=== PATIENT | male | born 1975 | race Caucasian/White ===

== ENCOUNTER → 2016-12-09 | Outpatient (CLI) | payer OTHER ==
[~2016-12-09] MED LIST: Albuterol 0.083% 2.5 MG/3 ML Neb Soln NEB ONE
== END ==
LOC: MW.RT 13:36
PROVIDERS: ATTEND Internal Medicine
DX: R06.09 Other forms of dyspnea (principal); J44.9 Chronic obstructive pulmonary disease, unspecified; J98.8 Other specified respiratory disorders
CPT/HCPCS: 94060; 94729

== ENCOUNTER → 2017-01-04 | Outpatient (CLI) | payer OTHER ==
--- NOTE | 2017-01-05 08:15 | PCM.PRNOTE ---
- Free Text/Narrative Note: Exercise MIBI Indication CP Sestamibi Tc99 25 MCi was given at the peak HR Patient was brought to the stress test lab in postabsorptive state verbal and paper consent was obtained from patient Vital signs at resting state blood pressure of 100/78 with a heart rate of 69 EKG shows sinus rhythm, with LVH by voltage criteria, no ST abnormalities, no ST changes no Q waves Maximal heart rate of 162 and target heart rate is 150 Patient reached the target heart rate, completed stage IV Shawn protocol Peak blood pressure is 146/80 Total exercise time of 11.33 minutes [place] V5V6, II, III, aVF, with a peak heart rate no arrhythmia METS 12.8 No symptom of chest pain or feeling dizzy Impression Normal hemodynamics, normal chronotropic, excellent exercise capacity, positive for ischemia on EKG Plan Nuclear portion pending
--- NOTE | 2017-01-05 09:34 | NM ---
EXAMINATION: Nuclear medicine myocardial perfusion study with exercise stress test. HISTORY: Heart failure. PROCEDURE: Patient exercised according to Shawn protocol for 11 minutes and 33 seconds and achieved maximal hea rt rate of 162 beats per minute. Adequate exercise. Following intravenous administration of 27.5 a mCi of technetium 99m sestamibi, stress SPECT images including gating imaging was performed. FINDINGS: Stress myocardial SPECT images demonstrates mildly decreased perfusion along the inferior wall, revi heck the source images this likely represents diaphragmatic attenuation. Review of gated images demonstrates normal wall motion, contractility and wall thickening. The left ventricular ejection fraction is 57 %. The left ventricular chamber size is normal. IMPRESSION: 1. Probable diaphragmatic attenuation along the inferior wall. If confirmation is needed correlate w ith rest imaging otherwise normal perfusion. 2. Normal ventricular chamber size and function with ejection fraction of 57 %.
== END ==
LOC: MW.NM 06:53
PROVIDERS: ATTEND Internal Medicine
DX: I50.9 Heart failure, unspecified (principal)
CPT/HCPCS: 78451; 93017; A9500

== ENCOUNTER 2018-05-03 14:14 | Emergency (ER) | payer SELFPAY ==
[2018-05-03] MEDS ORDERED: Metoprolol Succinate 50 MG Tab.ER PO ONE (14:35)
[2018-05-03] MEDS ORDERED: Bacitracin Oint 1 GM U/D Packet TOP ONE (14:36)
[2018-05-03] MEDS ORDERED: Diphtheria,Pertussis(Acell),Tetanus Vaccine 0.5 ML Syringe IM ONE (14:36)
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
[2018-05-03 15:03] VITALS: BP 183/126
== END 2018-05-03 14:59 ==
LOC: MW.ED 14:14
DX: S01.512A Laceration without foreign body of oral cavity, initial encounter (principal); S00.01XA Abrasion of scalp, initial encounter; I10 Essential (primary) hypertension; Z23 Encounter for immunization; Z79.82 Long term (current) use of aspirin; Z79.899 Other long term (current) drug therapy; V89.2XXA Person injured in unspecified motor-vehicle accident, traffic, initial encounter
CPT/HCPCS: 82962; 90471; 99283; A9270

== ENCOUNTER 2019-10-21 02:04 | Emergency (ER) | payer SELFPAY ==
[2019-10-21] MEDS ORDERED: Metoprolol Succinate 50 MG Tab.ER PO ONE (03:02)
[2019-10-21] MEDS ORDERED: Lisinopril 10 MG Tab PO ONE (03:02)
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
[2019-10-21 03:27] VITALS: BP 168/107; PULSE 110
== END 2019-10-21 03:25 | disposition home or self-care (01) ==
LOC: MW.ED 02:04
DX: F11.10 Opioid abuse, uncomplicated (principal); I10 Essential (primary) hypertension; F17.210 Nicotine dependence, cigarettes, uncomplicated; Z79.899 Other long term (current) drug therapy
CPT/HCPCS: 99285; A9270; 99283

== ENCOUNTER 2020-04-06 13:23 | Emergency (ER) | payer SELFPAY | END 2020-04-06 13:29 | disposition left against medical advice (07) | LOC: MW.ED 13:23 | DX: Z53.21 Procedure and treatment not carried out due to patient leaving prior to being seen by health care provider (principal) ==

== ENCOUNTER 2021-04-14 00:28 | Emergency (ER) | payer SELFPAY ==
--- NOTE | 2021-04-14 00:43 | EDM.PDOC ---
ED HPI GENERAL MEDICAL PROBLEM - General Chief Complaint: Skin Complaint Stated Complaint: WOUND ON RIGHT LEG Time Seen by Provider: 04/14/21 00:30 Source of Information: Reports: Patient History Limitations: Reports: No Limitations - History of Present Illness INITIAL COMMENTS - FREE TEXT/NARRATIVE: 45-year-old male past medical history of substance abuse presents for chronic wound to right lower extremity. Patient notes that he sustained a barbed wire fence injury back in December of this year. He has noted that the area has not healed properly for several months. He has been putting off seeing a physician but went on Tuesday of last week and was prescribed Keflex. He notes that his physician did not prescribe any pain medication. He states that he did have blood work done at that time, he is not certain of the results but his doctor was okay with him going home with oral antibiotics. He denies any gross changes to the area but states that it is very painful. He has follow-up with wound care tomorrow. Denies fevers, nausea, vomiting. Right Lower Leg Pain Score (Numeric/FACES): 9 - Related Data Allergies Allergy/AdvReac Type Severity Reaction Status Date / Time No Known Allergies Allergy Verified 04/14/21 00:35 Home Meds: Home Meds Metoprolol Tartrate 50 mg PO BID #60 tablet 10/21/19 [Rx] lisinopriL [Zestril] 20 mg PO DAILY #30 tablet 10/21/19 [Rx] oxyCODONE HCl/Acetaminophen [Percocet 10-325 mg Tablet] 1 each PO Q4H PRN #18 tablet 04/14/21 [Rx] Past Medical History - Past Health History Medical/Surgical History: Denies Medical/Surgical History HEENT History: Reports: None Cardiovascular History: Reports: None Respiratory History: Reports: None Gastrointestinal History: Reports: None Genitourinary History: Reports: None Musculoskeletal History: Reports: None, Amputation Neurological History: Reports: None Psychiatric History: Reports: Addiction, Anxiety Endocrine/Metabolic History: Reports: None Hematologic History: Reports: None Immunologic History: Reports: None Oncologic (Cancer) History: Reports: None Dermatologic History: Reports: Other (See Below) - Infectious Disease History Infectious Disease History: Reports: None - Past Surgical History Head Surgeries/Procedures: Reports: None GI Surgical History: Reports: Hernia, Abdominal Other Musculoskeletal Surgeries/Procedures:: right hand surgery Dermatological Surgical History: Reports: Other (See Below) Social & Family History - Family History Family Medical History: No Pertinent Family History - Caffeine Use Caffeine Use: Reports: Coffee - Recreational Drug Use Recreational Drug Type: Reports: Marijuana/Hashish ED ROS GENERAL - Review of Systems Review Of Systems: Comprehensive ROS is negative, except as noted in HPI. ED EXAM, SKIN/RASH Exam: See Below Exam Limited By: No Limitations General Appearance: Alert, WD/WN, No Apparent Distress Ears: Hearing Grossly Normal Throat/Mouth: Normal Voice, No Airway Compromise Head: Atraumatic, Normocephalic Neck: Normal Inspection Respiratory/Chest: No Respiratory Distress, No Accessory Muscle Use Cardiovascular: Normal Peripheral Pulses Extremities: Normal Inspection Neurological: Alert, Normal Cognition, Normal Gait Psychiatric: Normal Affect, Normal Mood Skin: Warm, Dry, Intact, Normal Color, Other (roughly 6x6-cm chronic ulcerated wound without surrounding erythema) Course - Vital Signs Last Recorded V/S: Last Vital Signs Temp 97.2 F 04/14/21 00:35 Pulse 78 04/14/21 00:35 Resp 17 04/14/21 00:35 BP 195/126 H 04/14/21 00:35 Pulse Ox 100 04/14/21 00:35 - Orders/Labs/Meds Orders: Active Orders 24 hr Category Date Time Status cefTRIAXone [Rocephin] 500 mg Med 04/14/21 00:58 Ordered Lidocaine 1% [Xylocaine-MPF 1%] 1 ml IM ONETIME Meds: Medications Discontinued Medications Generic Name Dose Route Start Last Admin Trade Name Freq PRN Reason Stop Dose Admin Clindamycin Phosphate 300 mg 04/14/21 00:52 Clindamycin Phosphate 900 Mg/6 Ml Sdv IM 04/14/21 00:58 ONETIME ONE Oxycodone/Acetaminophen 2 tab 04/14/21 00:51 Acetaminophen/Oxycodone 325-5 Mg Tab PO 04/14/21 00:52 ONETIME ONE - Re-Assessments/Exams Free Text/Narrative Re-Assessment/Exam: 04/14/21 00:57 Patient presents with chronic wound infection. I offered him labs and IV antibiotics but he declines. He is willing to accept an IM injection of antibiotics. He states he is basically just here for pain medication as his physician did not prescribe him any pain medication when he had his antibiotics filled on Tuesday. I do believe he is a safe discharge as he has follow-up plan carole tomorrow with wound care for long-term management of chronic wound. Departure - Departure Time of Disposition: 00:58 Disposition: Home, Self-Care 01 Condition: Good Clinical Impression: Chronic wound of extremity - Discharge Information Prescriptions: oxyCODONE HCl/Acetaminophen [Percocet 10-325 mg Tablet] 1 each PO Q4H PRN #18 tablet PRN Reason: Pain Referrals: Shawn Crespo MD [Primary Care Provider] - Forms: ED Department Discharge Additional Instructions: I have given you a short course of Percocet for your pain. Please follow-up with wound care for long-term management of your chronic wound. The following information is given to patients seen in the emergency department who are being discharged to home. This information is to outline your options for follow-up care. We provide all patients seen in our emergency department with a follow-up referral. The need for follow-up, as well as the timing and circumstances, are variable depending upon the specifics of your emergency department visit. If you don't have a primary care physician on staff, we will provide you with a referral. We always advise you to contact your personal physician following an emergency department visit to inform them of the circumstance of the visit and for follow-up with them and/or the need for any referrals to a consulting spec ialist. The emergency department will also refer you to a specialist when appropriate. This referral assures that you have the opportunity for follow-up care with a specialist. All of these measure are taken in an effort to provide you with optimal care, which includes your follow-up. Under all circumstances we always encourage you to contact your private physician who remains a resource for coordinating your care. When calling for follow-up care, please make the office aware that this follow-up is from your recent emergency room visit. If for any reason you are refused follow-up, please contact the [facility] Emergency Department at and asked to speak to the emergency department charge nurse. Please follow up with your primary care physician. If you do not have a primary care physician, see below: [facility] [place] [address] [id number] [place] [address] [facility] [address] [place] [address] Sepsis Event Note (ED) - Evaluation Sepsis Screening Result: No Definite Risk - Focused Exam Vital Signs: Vital Signs Temp Pulse Resp BP Pulse Ox 04/14/21 00:35 97.2 F 78 17 195/126 H 100 - My Orders Last 24 Hours: My Active Orders 04/14/21 00:58 cefTRIAXone [Rocephin] 500 mg Lidocaine 1% [Xylocaine-MPF 1%] 1 ml IM ONETIME - Assessment/Plan Last 24 Hours: My Active Orders 04/14/21 00:58 cefTRIAXone [Rocephin] 500 mg Lidocaine 1% [Xylocaine-MPF 1%] 1 ml IM ONETIME
[2021-04-14] MEDS ORDERED: Acetaminophen/oxyCODONE 325-5 MG Tab PO ONE (00:51)
[2021-04-14] MEDS ORDERED: Clindamycin Phosphate 900 MG/6 ML SDV IM ONE (00:52)
[2021-04-14] MEDS ORDERED: cefTRIAXone 500 MG in Lidocaine 1% 1 ML IM ONE (00:58)
[2021-04-14 01:26] VITALS: BP 170/116; PULSE 77
== END 2021-04-14 01:15 | disposition home or self-care (01) ==
LOC: MW.ED 00:28
DX: S81.801A Unspecified open wound, right lower leg, initial encounter (principal); X58.XXXA Exposure to other specified factors, initial encounter
CPT/HCPCS: 96372; 99282; A9270; J0696; 99283

== ENCOUNTER 2021-08-19 02:32 | Emergency (ER) | payer OTHER, BC ==
[2021-08-19] MEDS ORDERED: Tetracaine HCl/PF 0.5% 4 ML Bottle ONE (02:57)
[2021-08-19] MEDS ORDERED: Tetracaine HCl/PF 0.5% 4 ML Bottle EYEBOTH STA (03:00)
[2021-08-19 03:22] VITALS: PULSE 102
[2021-08-19] MEDS ORDERED: Erythromycin Base 0.5% Ophth Oint 1 GM Tube EYERT ONE (03:34)
--- NOTE | 2021-08-19 03:47 | EDM.PDOC ---
ED HPI GENERAL MEDICAL PROBLEM - General Chief Complaint: Eye Problems Stated Complaint: CHEMICAL IN RIGHT EYE Time Seen by Provider: 08/19/21 03:02 - History of Present Illness INITIAL COMMENTS - FREE TEXT/NARRATIVE: CHIEF COMPLAINT(S): Right eye pain HISTORY OF PRESENT ILLNESS: This is a 46-year-old man with a past medical history of hypertension who comes to the emergency department with a chief complaint of right eye pain. The patient states that approximately 10 to 12 hours prior to arrival he was working on the oil [place] when a chemical/surfactant splashed and got a small amount into his right eye. He states that there was initially no pain however over the last few hours he has been experiencing right eye pain and intermittent blurry vision. He denies any loss of vision, double vision. He states that there is no pain with extraocular movements. He states that there is clear drainage. He denies any other injury to the eye. He states that he washed his eye out with 3 cups of water. He has not tried any other medications. He currently rates his pain as 4-5 out of 10 and describes it as burning. REVIEW OF SYSTEMS: Constitutional: Denies fever, chills. Eyes: Denies eye pain Ears, Nose, Mouth, & Throat: Positive for right eye pain denies earache Cardiovascular: Denies chest pain Respiratory: Denies shortness of breath Gastrointestinal: Denies Nausea, vomiting, diarrhea, hematochezia. Genitourinary: Denies hematuria Skin:Denies a rash MSK: Denies joint pain Neurological: Positive for right eye blurry vision. Denies numbness, tingling, weakness, diplopia, loss of vision Psychiatric: Denies depression PAST MEDICAL HISTORY: As per history of present illness and as reviewed below otherwise noncontributory. SURGICAL HISTORY: As per history of present illness and as reviewed below [facility] noncontributory. SOCIAL HISTORY: As per history of present illness and as reviewed below otherwise noncontributory. FAMILY HISTORY: As per history of present illness and as reviewed below [facility] noncontributory. EXAMINATION OF ORGAN SYSTEMS/BODY AREAS: Constitutional: Blood pressure was 173/112, heart rate 102, respiratory rate 18 with an oxygen saturation 96% on room air. Temperature 36.5 General: Well-appearing man who is in no acute distress Psychiatric: Appropriate mood and affect. Eyes: There is no scleral icterus. The right eye has conjunctival injection. There is no limbic ischemia. No hyphema or hypopyon. Visual acuity is 2025 in left eye. Right visual acuity unable to assess secondary to patient stating his eye is blurry. Extraocular movements were intact. No signs of entrapment. No evidence of foreign body. On fluorescein examination there does not appear to be any corneal abrasion or Clarisse sign. ENMT: Moist mucous membranes. No pharyngeal erythema Cardiovascular: Regular, rate, and rhythm. No gallops, murmurs, or rubs. Respiratory: Lungs clear to auscultation bilaterally. No wheezes, rales, or rhonchi. Skin: No lesions or abrasions. Neurological: Alert, GCS 15 MEDICAL DECISION MAKING AND COURSE IN THE ED WITH INTERPRETATION/REVIEW OF DIAGNOSTIC STUDIES: This is a 46-year-old man without any significant past medical history who comes to the emergency department with chemical conjunctivitis without any obvious corneal abrasion. I did encourage the patient to rinse out the patient's eye however he refused stating that he does not like things in his eye. 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 On my limited examination there is no obvious emergent condition including a fixed dilated pupil concerning for glaucoma or globe rupture, signs of entrapment or significant corneal abrasion. The patient was unable to provide us with the actual chemical that was splashed into his eye. Given this we will provide the patient with the erythromycin cream and artificial tears. I did discuss with patient that we would contact in the morning the fitting room operator that he can have an appointment tomorrow for further evaluation. He was amenable to this plan. He was given strict return precautions. Patient was amenable discharge and had no further questions DISPOSITION: The patient was discharged home in stable condition. The patient will follow up with ophthalmology tomorrow CONDITION: Fair PROCEDURES: None FINAL IMPRESSION(S)/DIAGNOSES: 1. Acute right eye chemical conjunctivitis Rajesh Renee M.D. right eye Pain Score (Numeric/FACES): 8 - Related Data Allergies Allergy/AdvReac Type Severity Reaction Status Date / Time No Known Allergies Allergy Verified 08/19/21 03:00 Home Meds: Home Meds Metoprolol Tartrate 50 mg PO BID #60 tablet 10/21/19 [Rx] lisinopriL [Zestril] 20 mg PO DAILY #30 tablet 10/21/19 [Rx] oxyCODONE HCl/Acetaminophen [Percocet 10-325 mg Tablet] 1 each PO Q4H PRN #18 tablet 04/14/21 [Rx] Past Medical History - Past Health History Medical/Surgical History: Denies Medical/Surgical History HEENT History: Reports: None Cardiovascular History: Reports: None Respiratory History: Reports: None Gastrointestinal History: Reports: None Genitourinary History: Reports: None Musculoskeletal History: Reports: Amputation Neurological History: Reports: None Psychiatric History: Reports: Addiction, Anxiety Endocrine/Metabolic History: Reports: None Insulin Pump Model and Can Capper: None Hematologic History: Reports: None Immunologic History: Reports: None Oncologic (Cancer) History: Reports: None Dermatologic History: Reports: Other (See Below) Other Dermatologic History: leg ulcer - Infectious Disease History Infectious Disease History: Reports: None - Past Surgical History Head Surgeries/Procedures: Reports: None GI Surgical History: Reports: Hernia, Abdominal Other Musculoskeletal Surgeries/Procedures:: right hand surgery Social & Family History - Family History Family Medical History: No Pertinent Family History - Caffeine Use Caffeine Use: Reports: Coffee - Recreational Drug Use Recreational Drug Use: No ED ROS GENERAL - Review of Systems Review Of Systems: See Below ED EXAM GENERAL W FULL EYE - Physical Exam Exam: See Below Course - Vital Signs Last Recorded V/S: Last Vital Signs Temp 36.5 C 08/19/21 03:01 Pulse 102 H 08/19/21 04:14 Resp 18 08/19/21 04:14 BP 153/114 H 08/19/21 04:14 Pulse Ox 97 08/19/21 04:14 - Orders/Labs/Meds Meds: Medications Discontinued Medications Generic Name Dose Route Start Last Admin Trade Name Freq PRN Reason Stop Dose Admin Artificial Tears 1 each 08/19/21 03:43 08/19/21 04:00 Carboxymethylcellulose Sodium 0.5% Ophth Soln 0.4 Ml Ud Box Of 30 EYERT 08/19/21 03:44 1 drop ONETIME STA Administration Erythromycin 1 gm 08/19/21 03:34 08/19/21 03:38 Erythromycin Base 0.5% Ophth Oint 1 Gm Tube EYERT 08/19/21 03:35 1 gm ONETIME ONE Administration Tetracaine HCl 1 ml 08/19/21 03:00 08/19/21 03:13 Tetracaine Hcl/Pf 0.5% 4 Ml Bottle EYEBOTH 08/19/21 03:01 1 ml NOW STA Administration Tetracaine HCl Confirm 08/19/21 02:57 08/19/21 03:10 Tetracaine Hcl/Pf 0.5% 4 Ml Bottle Administered 08/19/21 02:58 Not Given Dose 4 ml .ROUTE .STK-MED ONE Departure - Departure Time of Disposition: 03:44 Disposition: Home, Self-Care 01 Condition: Fair Clinical Impression: Chemical conjunctivitis of right eye - Discharge Information *PRESCRIPTION DRUG MONITORING PROGRAM REVIEWED*: No *COPY OF PRESCRIPTION DRUG MONITORING REPORT IN PATIENT BERTA: No Instructions: Chemical Conjunctivitis, Adult, [id number] Referrals: Shawn Crespo MD [Primary Care Provider] - Forms: ED Department Discharge Additional Instructions: You were evaluated today on an emergent basis. At this time your exam was limited however I do recommend that you use the erythromycin ointment and artificial tears 4-6 times daily. I recommend you contact ophthalmology this morning and set up an appointment today so that they can evaluate you in their clinic. Typically they are available to see you in clinic. We will attempt to call and make an a clinic appointment for you today. If you have any worsening symptoms please return to the emergency department. Opthalmology Dr. Wheatley/Alcon [phone] The patient is informed of any results of their evaluation and diagnostic workup and all questions are answered. They are given discharge instructions and return precautions. The patient is stable for discharge. The patient states they understand and agree with the plan and that they will return if their symptoms get worse or if they have any new concerns. The following information is given to patients seen in the emergency department who are being discharged to home. This information is to outline your options for follow-up care. We provide all patients seen in our emergency department with a follow-up referral. The need for follow-up, as well as the timing and circumstances, are variable depending upon the specifics of your emergency department visit. If you don't have a primary care physician on staff, we will provide you with a referral. We always advise you to contact your personal physician following an emergency department visit to inform them of the circumstance of the visit and for follow-up with them and/or the need for any referrals to a consulting specialist. The emergency department will also refer you to a specialist when appropriate. This referral assures that you have the opportunity for follow-up care with a specialist. All of these measure are taken in an effort to provide you with optimal care, which includes your follow-up. Under all circumstances we always encourage you to contact your private physi abelardo who remains a resource for coordinating your care. When calling for follow- up care, please make the office aware that this follow-up is from your recent emergency room visit. If for any reason you are refused follow-up, please contact the [facility] Emergency Department at and asked to speak to the emergency department charge nurse. Sepsis Event Note (ED) - Evaluation Sepsis Screening Result: No Definite Risk - Focused Exam Vital Signs: Vital Signs Temp Pulse Resp BP Pulse Ox 08/19/21 04:14 102 H 18 153/114 H 97 08/19/21 03:01 36.5 C 102 H 18 173/112 H 96
[2021-08-19] MEDS: Carboxymethylcellulose Sodium 0.5% Ophth Soln 0.4 ML UD Box of 30 EYERT STA ×2 (04:00→04:09)
[2021-08-19 04:15] VITALS: BP 153/114
== END 2021-08-19 04:15 | disposition home or self-care (01) ==
LOC: MW.ED 02:32
DX: H10.211 Acute toxic conjunctivitis, right eye (principal); T50.995A Adverse effect of other drugs, medicaments and biological substances, initial encounter
CPT/HCPCS: 99283; A9270

== ENCOUNTER 2021-09-12 12:02 | Emergency (ER) | payer BC ==
--- NOTE | 2021-09-12 12:31 | EDM.PDOC ---
ED HPI GENERAL MEDICAL PROBLEM - General Chief Complaint: Lower Extremity Injury/Pain Stated Complaint: MEDICAL CLEARANCE Time Seen by Provider: 09/12/21 12:12 - History of Present Illness INITIAL COMMENTS - FREE TEXT/NARRATIVE: CHIEF COMPLAINT(S): Medical Clearance HISTORY OF PRESENT ILLNESS: This is a 46-year-old man with a past medical history of hypertension and chronic right lower extremity wound who comes to the emergency department with a chief complaint of Medical Clearance. The patient states that they have no symptoms and are here for medical clearance. The patient states that they are feeling well and they deny chest pain, shortness of breath, abdominal pain, nausea or vomiting. He denies any fevers or chills. He denies any drainage from his chronic wound. He denies any pain in the area. He states that he was not on his way to the emergency department until he was arrested. He denies any other symptoms REVIEW OF SYSTEMS: Constitutional: Denies fever, chills. Eyes: Denies eye pain Ears, Nose, Mouth, & Throat: Denies earache Cardiovascular: Denies chest pain Respiratory: Denies shortness of breath Gastrointestinal: Denies Nausea, vomiting, diarrhea, hematochezia. Genitourinary: Denies hematuria Skin: Positive for chronic right lower extremity wound MSK: Denies joint pain Neurological: Denies blurred vision Psychiatric: Denies depression PAST MEDICAL HISTORY: As per history of present illness and as reviewed below otherwise noncontributory. SURGICAL HISTORY: As per history of present illness and as reviewed below otherwise noncontributory. SOCIAL HISTORY: As per history of present illness and as reviewed below otherwise noncontributory. FAMILY HISTORY: As per history of present illness and as reviewed below otherwise noncontributory. EXAMINATION OF ORGAN SYSTEMS/BODY AREAS: Constitutional: Blood pressure is 183/117, heart rate 100, respiratory rate 18 with an oxygen saturation of 98% on room air. Temperature 36.7 General: Young man who does not appear to be in acute distress Psychiatric: Appropriate mood and affect. Eyes: No scleral icterus or conjunctival erythema ENMT: Moist mucous membranes. No pharyngeal erythema Cardiovascular: Regular, rate, and rhythm. No gallops, murmurs, or rubs. Bilateral upper extremity pulses symmetric and intact. No peripheral edema. No JVD. Respiratory: Lungs clear to auscultation bilaterally. No wheezes, rales, or rhonchi. Gastrointestinal: Soft, non-tender, non-distended. Normoactive bowel sounds Genitourinary: No suprapubic tenderness Musculoskeletal: Normal range of motion. Skin: 6 x 6 cm wound to the patient's right calf area without any surrounding erythema or purulent drainage. There appears to be some healing surrounding this wound however it is slightly foul-smelling. No crepitus. Neurological: Alert, GCS 15 distal sensation is intact MEDICAL DECISION MAKING AND COURSE IN THE ED WITH INTERPRETATION/REVIEW OF DIAGNOSTIC STUDIES: This is a 46-year-old man with a past medical history of chronic right lower extremity wound and hypertension who comes to the emergency department for a medical clearance. The patient is currently asymptomatic but does have some hypertension which is uncontrolled. The patient states that he has not taken his blood pressure medications in time. He does not remember his medications. Therefore we will confirm his medications and provide him with his home medications. He denies any other symptoms. Given the right lower extremity wound I did contact Dr. Ribera to come and evaluated and provide recommendations given the patient will be in fdc. She stated that she would come down and evaluate the patient. Dr. Ribera did come and evaluate the patient provide recommendations. At this time she stated that the wound has significantly proved and provided recommendations which provided the patient discharge paperwork. Given strict return precautions to the patient. The patient was amenable to discharge and had no further questions. DISPOSITION: The patient was discharged in police custody in stable condition. CONDITION: Good PROCEDURES: None FINAL IMPRESSION(S)/DIAGNOSES: 1. Acute encounter for medical screening examination 2. Chronic wound 3. Hypertension Rajesh Renee M.D. right leg Pain Score (Numeric/FACES): 8 - Related Data Allergies Allergy/AdvReac Type Severity Reaction Status Date / Time No Known Allergies Allergy Verified 09/12/21 12:13 Home Meds: Home Meds Lisinopril/Hydrochlorothiazide [Lisinopril-Hctz 20-25 mg Tab] 1 each PO DAILY #30 tablet 09/12/21 [Rx] Sodium Hypochlorite [Dakin's] 473 ml MC DAILY #1 solution 09/12/21 [Rx] predniSONE 10 mg PO .TAPER #70 tab 09/12/21 [Rx] Past Medical History - Past Health History Medical/Surgical History: Denies Medical/Surgical History HEENT History: Reports: None Cardiovascular History: Reports: None Respiratory History: Reports: None Gastrointestinal History: Reports: None Genitourinary History: Reports: None Musculoskeletal History: Reports: Amputation Neurological History: Reports: None Psychiatric History: Reports: Addiction, Anxiety Endocrine/Metabolic History: Reports: None Insulin Pump Model and Inclusion Special Education Teacher: None Hematologic History: Reports: None Immunologic History: Reports: None Oncologic (Cancer) History: Reports: None Dermatologic History: Reports: Other (See Below) Other Dermatologic History: leg ulcer - Infectious Disease History Infectious Disease History: Reports: None - Past Surgical History Head Surgeries/Procedures: Reports: None GI Surgical History: Reports: Hernia, Abdominal Other Musculoskeletal Surgeries/Procedures:: right hand surgery Dermatological Surgical History: Reports: Other (See Below) Social & Family History - Family History Family Medical History: No Pertinent Family History - Caffeine Use Caffeine Use: Reports: Coffee Review of Systems - Review of Systems Review Of Systems: See Below ED EXAM, GENERAL - Physical Exam Exam: See Below Course - Vital Signs Last Recorded V/S: Last Vital Signs Temp 36.7 C 09/12/21 12:14 Pulse 93 09/12/21 13:46 Resp 16 09/12/21 13:46 BP 188/125 H 09/12/21 13:46 Pulse Ox 98 09/12/21 13:46 - Orders/Labs/Meds Meds: Medications Discontinued Medications Generic Name Dose Route Start Last Admin Trade Name Troyq PRN Reason Stop Dose Admin Lisinopril/HCTZ 2 tab 09/12/21 12:33 09/12/21 12:57 Lisinopril/Hydrochlorothiazide 10-12.5 Mg Tab PO 09/12/21 12:34 2 tab ONETIME ONE Administration Departure - Departure Time of Disposition: 13:04 Disposition: Home, Self-Care 01 Condition: Good Clinical Impression: Hypertension, Chronic wound of extremity - Discharge Information Prescriptions: Sodium Hypochlorite [Dakin's] 473 ml MC DAILY #1 solution Lisinopril/Hydrochlorothiazide [Lisinopril-Hctz 20-25 mg Tab] 1 each PO DAILY #30 tablet predniSONE 10 mg PO .TAPER #70 tab Instructions: Hypertension, Adult Referrals: PCP,None [Primary Care Provider] - Forms: ED Department Discharge Additional Instructions: Your evaluated today on an emergent basis. At this time we did have the surgeon come down and evaluate your wound. It does appear to be healing well. Your blood pressure was elevated here today and we did provide you with your home dose of medication. I recommend you take your home dose of medication as prescribed. Please follow the following recommendations Take prednisone daily Week 1 (starting today): 40mg/day Week 2: 30mg/day Week 3: 20mg/day Week 4: 10mg/day Week 5 stop In addition I would like you to use Dakin's solution and soaked a 4 x 4 gauze. We will bring that gauze out and apply to the wound. Cover that with a dry 4 x 4 gauze and secured the pad in place with an Meek bandage. This needs to be done daily. Meek bandage can be picked up at pharmacy as your prescriptions were sent to [facility] Follow-up with general surgery as needed. [facility] - General Surgery [address], [address] [place] [address] The patient is informed of any results of their evaluation and diagnostic workup and all questions are answered. They are given discharge instructions and return precautions. The patient is stable for discharge. The patient states they understand and agree with the plan and that they will return if their symptoms get worse or if they have any new concerns. The following information is given to patients seen in the emergency department who are being discharged to home. This information is to outline your options for follow-up care. We provide all patients seen in our emergency department with a follow-up referral. The need for follow-up, as well as the timing and circumstances, are variable depending upon the specifics of your emergency department visit. If you don't have a primary care physician on staff, we will provide you with a referral. We always advise you to contact your personal physician following an emergency department visit to inform them of the circumstance of the visit and for follow-up with them and/or the need for any referrals to a consulting specialist. The emergency department will also refer you to a specialist when appropriate. This referral assures that you have the opportunity for follow-up care with a specialist. All of these measure are taken in an effort to provide you with optimal care, which includes your follow-up. Under all circumstances we always encourage you to contact your private physician who remains a resource for coordinating your care. When calling for follow-up care, please make the office aware that this follow-up is from your recent emergency room visit. If for any reason you are refused follow-up, please contact the [facility] Emergency Department at and asked to speak to the emergency department charge nurse. Sepsis Event Note (ED) - Evaluation Sepsis Screening Result: No Definite Risk
[2021-09-12] MEDS ORDERED: Lisinopril/Hydrochlorothiazide 10-12.5 MG Tab PO ONE (12:33)
[2021-09-12 13:46] VITALS: BP 188/125; PULSE 93
== END 2021-09-12 13:47 | disposition home or self-care (01) ==
LOC: MW.ED 12:02
DX: S81.801A Unspecified open wound, right lower leg, initial encounter (principal); I10 Essential (primary) hypertension; X58.XXXA Exposure to other specified factors, initial encounter
CPT/HCPCS: 99283; A9270

== ENCOUNTER 2022-01-29 05:50 | Emergency (ER) | payer OTHER ==
[2022-01-29] MEDS ORDERED: Octyl 2-Cyanoacrylate 1 APPLIC TUBE TOP STA (06:14)
[2022-01-29 06:51] VITALS: BP 163/107; PULSE 74
== END 2022-01-29 06:45 | disposition home or self-care (01) ==
LOC: MW.ED 05:50
DX: S61.210A Laceration without foreign body of right index finger without damage to nail, initial encounter (principal); W26.8XXA Contact with other sharp object(s), not elsewhere classified, initial encounter
CPT/HCPCS: 12001; 73120; 99282; A9270; 99283

== ENCOUNTER 2022-02-14 11:57 | Emergency (ER) | payer BC, OTHER ==
[2022-02-14 12:22] VITALS: BP 179/119; PULSE 92
[2022-02-14] MEDS ORDERED: Orphenadrine 60 MG/2 ML Inj IM ONE (12:54)
[2022-02-14] MEDS ORDERED: Ketorolac 30 MG/ML SDV IM ONE (12:54)
[2022-02-14] MEDS ORDERED: Lidocaine 5% 700 MG Patch TRDERM ONE (12:54)
[2022-02-14] MEDS ORDERED: traMADol 50 MG Tab PO ONE (12:55)
== END 2022-02-14 14:56 | disposition home or self-care (01) ==
LOC: MW.ED 11:57
DX: M54.50 Low back pain, unspecified (principal); I10 Essential (primary) hypertension; F41.9 Anxiety disorder, unspecified; Z79.899 Other long term (current) drug therapy
CPT/HCPCS: 72131; 96372; 99283; A9270; J1885; J2360

== ENCOUNTER 2022-02-21 09:13 | Emergency (ER) | payer BC, OTHER ==
[2022-02-21 09:42] VITALS: BP 176/106; PULSE 119
[2022-02-21] MEDS ORDERED: Ketorolac 30 MG/ML SDV IM ONE (09:46)
[2022-02-21] MEDS ORDERED: Orphenadrine 60 MG/2 ML Inj IM ONE (09:46)
== END 2022-02-21 10:05 | disposition home or self-care (01) ==
LOC: MW.ED 09:13
DX: G89.29 Other chronic pain (principal); M54.50 Low back pain, unspecified; I10 Essential (primary) hypertension; Z72.0 Tobacco use
CPT/HCPCS: 96372; 99283; J1885; J2360

== ENCOUNTER 2022-03-26 15:49 | Emergency (ER) | payer BC ==
[2022-03-26] MEDS ORDERED: HYDROmorphone 2 MG/ML Syringe IVPUSH STA (16:42)
[2022-03-26] MEDS ORDERED: Ondansetron 4 MG/2 ML SDV IVPUSH STA (16:42)
[2022-03-26] MEDS ORDERED: Sodium Chloride 0.9% 1,000 ML IV SCH (16:45)
[2022-03-26] MEDS ORDERED: cefTRIAXone 2 GM in Sodium Chloride 0.9% 100 ML IV STA (17:12)
[2022-03-26] MEDS ORDERED: VANCOmycin 1.5 GM/300 ML 1.5 GM in Premix Bag 1 BAG IV ONE (17:30)
[2022-03-26 19:15] LABS: BLOOD UREA NITROGEN,BUN 12 mg/dL (7.0-18.0); CARBON DIOXIDE,CO2 25.5 mmol/L (21.0-32.0); CHLORIDE,CL 103 mmol/L (98-107); GLUCOSE RANDOM 92 mg/dL (74-106); POTASSIUM,K 4.4 mmol/L (3.5-5.1); SODIUM,NA 138 mmol/L (136-148)
[2022-03-26 19:20] LABS: ESTIMATED GFR > 60.0 ml/min
[2022-03-26] MEDS ORDERED: cefTRIAXone 2 GM/50 ML BAG ONE (19:44)
[2022-03-26] MEDS ORDERED: cefTRIAXone 2 GM in Premix Bag 1 BAG IV STA (19:53)
[2022-03-26 21:06] VITALS: BP 153/96; PULSE 89
== END 2022-03-26 20:30 ==
LOC: MW.ED 15:49
DX: M46.49 Discitis, unspecified, multiple sites in spine (principal); M86.9 Osteomyelitis, unspecified; F11.20 Opioid dependence, uncomplicated; I10 Essential (primary) hypertension; Z79.899 Other long term (current) drug therapy; Z20.822 Contact with and (suspected) exposure to COVID-19
CPT/HCPCS: 36415; 80053; 83605; 85025; 85652; 87040; 87077; 87186; 87635; 96365; 96366; 96367; 96375; 99284; J0696; J1170; J2405; J3370; J7030; 99285; U0002

== ENCOUNTER 2022-06-28 08:24 | Inpatient (IN) | payer BC ==
[2022-06-28] MEDS ORDERED: Sodium Chloride 0.9% 10 ML Syringe FLUSH PRN (09:50)
[2022-06-28] MEDS ORDERED: Sodium Chloride 0.9% 2.5 ML Syringe FLUSH PRN (09:50)
[2022-06-28] MEDS ORDERED: Sodium Chloride 0.9% 1,000 ML IV ONE ×2 (09:50→10:26)
[2022-06-28 10:22] LABS: CARBON DIOXIDE,CO2 24.2 mmol/L (21.0-32.0); POTASSIUM,K 4.7 mmol/L (3.5-5.1)
[2022-06-28] MEDS ORDERED: Lactated Ringers 1,000 ML IV ONE (10:42)
[2022-06-28] MEDS ORDERED: Hydrocortisone Sodium Succinate 100 MG/2 ML SDV IVPUSH ONE (12:25)
[2022-06-28 12:52] LABS: CARBON DIOXIDE,CO2 25.1 mmol/L (21.0-32.0); POTASSIUM,K 4.6 mmol/L (3.5-5.1)
[2022-06-28] MEDS ORDERED: Lidocaine 2% 11 ML Jelly Filled Syringe MUCMEM STA (16:10)
[2022-06-28 17:38] VITALS: PULSE 88
[2022-06-28] MEDS ORDERED: Lactated Ringers 500 ML IV SCH (18:30)
[2022-06-28] MEDS ORDERED: Lactated Ringers 500 ML IV ONE (18:45)
[2022-06-28] MEDS ORDERED: methylPREDNISolone Sodium Succinate 40 MG/1 ML SDV IVPUSH SCH (18:45)
[2022-06-28] MEDS ORDERED: Norepinephrine 4 MG in Dextrose 5% in Water 246 ML IV SCH ×4 (19:00→20:00)
[2022-06-28] MEDS: Lactated Ringers 1,000 ML IV SCH ×2 (19:08→22:18)
[2022-06-28] MEDS: Heparin Sodium 5,000 Units/ML Vial SUBCUT SCH (19:46)
[2022-06-28] MEDS: Hydrocortisone Sodium Succinate 100 MG/2 ML SDV IVPUSH SCH (19:46)
[2022-06-29 00:30] LABS: CARBON DIOXIDE,CO2 27.8 mmol/L (21.0-32.0)
[2022-06-29] MEDS: Hydrocortisone Sodium Succinate 100 MG/2 ML SDV IVPUSH SCH ×3 (01:17→14:18)
[2022-06-29] MEDS ORDERED: DAPTOmycin 500 MG Vial IV STA (02:15)
[2022-06-29] MEDS ORDERED: DAPTOMYCIN IVPUSH ONE ×2 (02:30→02:45)
[2022-06-29] MEDS ORDERED: SODIUM CHLORIDE 0.9% IVPUSH ONE ×2 (02:30→02:45)
[2022-06-29] MEDS: Heparin Sodium 5,000 Units/ML Vial SUBCUT SCH ×2 (03:52→12:04)
[2022-06-29] MEDS: Lactated Ringers 1,000 ML IV SCH (05:48)
[2022-06-29 06:28] LABS: CARBON DIOXIDE,CO2 28.5 mmol/L (21.0-32.0); POTASSIUM,K 3.9 mmol/L (3.5-5.1)
[2022-06-29] MEDS ORDERED: Sodium Hypochlorite 0.25% Soln 473 ML TOP SCH (09:30)
[2022-06-29] MEDS ORDERED: cefTAZidime Pentahydrate 2 GM in Dextrose 5% in Water 100 ML IV SCH ×2 (10:00)
[2022-06-29 14:33] VITALS: BP 115/67
[2022-06-30] MEDS ORDERED: VANCOmycin 1.5 GM/300 ML 300 ML IV SCH (04:00)
== END 2022-06-29 02:30 | DRG 424 ==
LOC: MW.ED 08:24 → MW.ICU 16:56
PROVIDERS: ADMIT Student in an Organized Health Care Education/Training Program; ATTEND Student in an Organized Health Care Education/Training Program
PROC: 05HM33Z Insertion of Infusion Device into Right Internal Jugular Vein, Percutaneous Approach (ICD-10-PCS; principal; 2022-06-28)
DX: E27.2 Addisonian crisis (principal); N17.9 Acute kidney failure, unspecified; I95.9 Hypotension, unspecified; E27.40 Unspecified adrenocortical insufficiency; F41.9 Anxiety disorder, unspecified; I11.0 Hypertensive heart disease with heart failure; Z66 Do not resuscitate; Z20.822 Contact with and (suspected) exposure to COVID-19; I50.9 Heart failure, unspecified; E86.0 Dehydration; L97.909 Non-pressure chronic ulcer of unspecified part of unspecified lower leg with unspecified severity; T38.0X5A Adverse effect of glucocorticoids and synthetic analogues, initial encounter; Z79.899 Other long term (current) drug therapy; Z51.5 Encounter for palliative care
CPT/HCPCS: 36415; 71045; 71045-26; 80048; 80053; 81001; 82550; 82947; 83605; 83735; 83935; 84300; 84443; 84484; 85025; 87040; 87077; 87154; 87186; 93005; 96361; 96374; 99285-25; A9270-GY; J0713; J0878; J1644; J1720; J3490; J7030; J7060; J7120; U0002

== ENCOUNTER 2022-10-15 14:35 | Emergency (ER) | payer BC ==
[2022-10-15 15:21] VITALS: BP 185/109; PULSE 105
[2022-10-15] MEDS ORDERED: Diphtheria,Pertussis(Acell),Tetanus Vaccine 0.5 ML Syringe IM ONE (16:06)
[2022-10-15] MEDS ORDERED: Acetaminophen/HYDROcodone 325-5 MG Tab PO ONE (19:05)
== END 2022-10-15 21:30 ==
LOC: MW.ED 14:35
DX: T33.522A Superficial frostbite of left hand, initial encounter (principal); T33.521A Superficial frostbite of right hand, initial encounter; I11.0 Hypertensive heart disease with heart failure; I50.9 Heart failure, unspecified; F17.210 Nicotine dependence, cigarettes, uncomplicated; Z79.899 Other long term (current) drug therapy; X31.XXXA Exposure to excessive natural cold, initial encounter
CPT/HCPCS: 99283; A9270

== ENCOUNTER 2023-01-14 16:37 | Emergency (ER) | payer SELFPAY ==
[2023-01-14] MEDS ORDERED: Sodium Chloride 0.9% 10 ML Syringe FLUSH PRN (17:32)
[2023-01-14] MEDS ORDERED: Sodium Chloride 0.9% 2.5 ML Syringe FLUSH PRN (17:32)
[2023-01-14 18:43] LABS: CARBON DIOXIDE,CO2 27.8 mmol/L (21.0-32.0); POTASSIUM,K 3.9 mmol/L (3.5-5.1)
[2023-01-14] MEDS ORDERED: Iopamidol 755 MG/ML 500 ML Multipack Bottle IVPUSH ONE (19:15)
[2023-01-14] MEDS ORDERED: Ibuprofen 800 MG Tab PO STA (19:23)
[2023-01-14] MEDS ORDERED: Ibuprofen 800 MG Tab ONE (19:24)
[2023-01-14 20:42] VITALS: BP 138/83; PULSE 76
== END 2023-01-14 21:15 | disposition left against medical advice (07) ==
LOC: MW.ED 16:37
DX: M54.41 Lumbago with sciatica, right side (principal); F15.10 Other stimulant abuse, uncomplicated; F11.10 Opioid abuse, uncomplicated; L97.219 Non-pressure chronic ulcer of right calf with unspecified severity; I11.0 Hypertensive heart disease with heart failure; I50.9 Heart failure, unspecified; Z72.0 Tobacco use; Z79.899 Other long term (current) drug therapy
CPT/HCPCS: 36415; 72132; 73590; 80053; 80305; 81001; 83605; 85025; 85652; 86140; 87040; 87086; 99284; A9270; Q9967

== ENCOUNTER 2023-02-12 21:10 | Emergency (ER) | payer BC ==
[2023-02-12] MEDS ORDERED: Sodium Chloride 0.9% 1,000 ML IV ONE (22:28)
[2023-02-12] MEDS ORDERED: HYDROmorphone 1 MG/ML Syringe IVPUSH ONE (22:28)
[2023-02-12] MEDS ORDERED: Ondansetron 4 MG/2 ML SDV IVPUSH ONE (22:40)
[2023-02-13] MEDS ORDERED: HYDROmorphone 2 MG/ML Syringe IVPUSH ONE (01:37)
[2023-02-13 02:00] LABS: CORONAVIRUS COVID-19 NAA NEGATIVE (NEGATIVE); INFLUENZA A NAA NEGATIVE (NEGATIVE); INFLUENZA B NAA NEGATIVE (NEGATIVE)
[2023-02-13 02:07] LABS: CARBON DIOXIDE,CO2 23.6 mmol/L (21.0-32.0); POTASSIUM,K 4.2 mmol/L (3.5-5.1)
[2023-02-13] MEDS ORDERED: Cefepime 2 GM in Sodium Chloride 0.9% 50 ML IV ONE (03:06)
[2023-02-13] MEDS ORDERED: HYDROmorphone 1 MG/ML Syringe IVPUSH ONE ×2 (08:37→08:39)
[2023-02-13 08:50] VITALS: BP 159/100; PULSE 107
== END 2023-02-13 09:24 ==
LOC: MW.ED 21:10
DX: M86.9 Osteomyelitis, unspecified (principal); I11.0 Hypertensive heart disease with heart failure; I50.9 Heart failure, unspecified; Z20.822 Contact with and (suspected) exposure to COVID-19
CPT/HCPCS: 0240U; 36415; 73590; 80053; 80305; 83605; 85025; 86850; 86900; 86901; 87040; 96365; 96367; 96375; 96376; 99284; J0692; J1170; J2405; J3360; J3370; J3490; J7030; J7050; 99285

== ENCOUNTER 2023-07-29 10:45 | Inpatient (IN) | payer BC ==
[2023-07-29] MEDS ORDERED: Sodium Chloride 0.9% 10 ML Syringe FLUSH PRN (10:52)
[2023-07-29] MEDS ORDERED: Sodium Chloride 0.9% 2.5 ML Syringe FLUSH PRN (10:52)
[2023-07-29] MEDS ORDERED: Sodium Chloride 0.9% 1,000 ML IV ONE (11:44)
[2023-07-29 12:35] LABS: A/G RATIO 0.5 (0.9-1.6); ALANINE AMINOTRANSFERASE,ALT 57 IU/L (14-63); ALBUMIN 2.8 g/dL (3.4-5.0); ALKALINE PHOSPHATASE 132 U/L (46-116); ASPARTATE AMNIOTRANSFERASE,AST 61 IU/L (15-37); BASOPHILS ABSOLUTE AUTO 0.04 K/uL (0.00-0.20); BASOPHILS PERCENT AUTO 0.5 % (0.0-1.0); BILIRUBIN TOTAL 0.3 mg/dL (0.2-1.0); BLOOD UREA NITROGEN,BUN 15 mg/dL (7.0-18.0); CALCIUM 8.7 mg/dL (8.5-10.1); CARBON DIOXIDE,CO2 26.6 mmol/L (21.0-32.0); CHLORIDE,CL 99 mmol/L (98-107); CREATININE 0.9 mg/dL (0.8-1.3); EOSINOPHILS PERCENT AUTO 2.7 % (0.0-6.0); GLUCOSE RANDOM 103 mg/dL (74-106); HEMATOCRIT 32.6 % (42.0-52.0); LYMPHOCYTES ABSOLUTE AUTO 1.75 K/uL (1.00-4.80); LYMPHOCYTES PERCENT AUTO 23.4 % (24.0-44.0); MEAN CORPUSCULAR HGB CONC 33.7 g/dL (32.0-36.0); MEAN PLATELET VOLUME 9.7 fL (9.4-12.4); MONOCYTES ABSOLUTE AUTO 0.66 K/uL (0.00-0.80); MONOCYTES PERCENT AUTO 8.8 % (0.0-8.0); NEUTROPHILS ABSOLUTE AUTO 4.8 K/uL (1.8-7.7); NEUTROPHILS PERCENT AUTO 64.5 % (41.0-71.0); PLATELET COUNT,PLT 252 K/uL (150-400); RED BLOOD CELL COUNT 3.79 M/uL (4.52-5.90); SODIUM,NA 132 mmol/L (136-148); WHITE BLOOD CELL COUNT,WBC 7.49 K/uL (3.9-11.3)
[2023-07-29 12:36] LABS: ESTIMATED GFR 104 mL/min (>60)
[2023-07-29] MEDS ORDERED: Gadobenate Dimeglumine 529 MG/ML 20 ML SDV IVPUSH STA (13:23)
[2023-07-29] MEDS ORDERED: VANCOmycin 1.5 GM/300 ML 1.5 GM in Premix Bag 1 BAG IV ONE ×2 (13:45→15:15)
[2023-07-29] MEDS ORDERED: Morphine 4 MG/ML Syringe IVPUSH ONE (15:37)
[2023-07-29] MEDS ORDERED: Ondansetron 4 MG/2 ML SDV IVPUSH ONE (15:37)
[2023-07-29] MEDS ORDERED: Acetaminophen 325 MG Tab PO PRN (18:39)
[2023-07-29] MEDS ORDERED: Ondansetron 4 MG/2 ML SDV IVPUSH PRN (18:39)
[2023-07-29] MEDS: Pantoprazole 40 MG in Sodium Chloride 0.9% 10 ML IVPUSH SCH (19:51)
[2023-07-29] MEDS: Enoxaparin 40 MG/0.4 ML Syringe SUBCUT SCH (19:55)
[2023-07-29] MEDS: Cefepime 2 GM in Sodium Chloride 0.9% 50 ML IV SCH (20:00)
[2023-07-29] MEDS: oxyCODONE 5 MG Tab PO PRN (20:43)
[2023-07-30] MEDS: oxyCODONE 5 MG Tab PO PRN ×5 (00:27→22:34)
[2023-07-30] MEDS: amLODIPine 5 MG Tab PO SCH ×3 (02:43→09:07)
[2023-07-30] MEDS ORDERED: Acetaminophen 325 MG Tab PO SCH (07:15)
[2023-07-30] MEDS: Acetaminophen 325 MG Tab PO SCH ×3 (07:40→20:24)
[2023-07-30] MEDS: Cefepime 2 GM in Sodium Chloride 0.9% 50 ML IV SCH ×2 (09:48→20:37)
[2023-07-30] MEDS: Ketorolac 30 MG/ML SDV IVPUSH SCH ×2 (13:28→20:26)
[2023-07-30 15:03] LABS: BASOPHILS ABSOLUTE AUTO 0.04 K/uL (0.00-0.20); BASOPHILS PERCENT AUTO 0.7 % (0.0-1.0); EOSINOPHILS ABSOLUTE AUTO 0.01 K/uL (0.00-0.45); EOSINOPHILS PERCENT AUTO 0.2 % (0.0-6.0); HEMATOCRIT 41.1 % (42.0-52.0); HEMOGLOBIN 14.2 g/dL (14.0-18.0); LYMPHOCYTES ABSOLUTE AUTO 1.14 K/uL (1.00-4.80); MEAN CORPUSCULAR HEMOGLOBIN 28.5 pg (28.0-32.0); MEAN CORPUSCULAR HGB CONC 34.5 g/dL (32.0-36.0); MEAN CORPUSCULAR VOLUME 82.4 fL (83.0-99.0); MEAN PLATELET VOLUME 9.1 fL (9.4-12.4); MONOCYTES ABSOLUTE AUTO 0.45 K/uL (0.00-0.80); MONOCYTES PERCENT AUTO 7.9 % (0.0-8.0); NEUTROPHILS ABSOLUTE AUTO 4.1 K/uL (1.8-7.7); PLATELET COUNT,PLT 344 K/uL (150-400); RED BLOOD CELL COUNT 4.99 M/uL (4.52-5.90)
[2023-07-30 15:36] LABS: A/G RATIO 0.5 (0.9-1.6); ALBUMIN 3.4 g/dL (3.4-5.0); BILIRUBIN TOTAL 0.5 mg/dL (0.2-1.0); CALCIUM 9.7 mg/dL (8.5-10.1); CARBON DIOXIDE,CO2 25.8 mmol/L (21.0-32.0); CREATININE 0.9 mg/dL (0.8-1.3); EST CRCL DRUG DOSING (CG) 104.31 mL/min; POTASSIUM,K 3.4 mmol/L (3.5-5.1); PROTEIN TOTAL,TP 10.3 g/dL (6.4-8.2)
[2023-07-30] MEDS: Pantoprazole 40 MG in Sodium Chloride 0.9% 10 ML IVPUSH SCH (18:38)
[2023-07-30] MEDS: Nicotine 21 MG/24 Hr Patch TRDERM SCH (18:38)
[2023-07-30] MEDS: Enoxaparin 40 MG/0.4 ML Syringe SUBCUT SCH (20:25)
[2023-07-30] MEDS: Metoprolol Tartrate 50 MG Tab PO SCH (20:30)
[2023-07-31] MEDS: Acetaminophen 325 MG Tab PO SCH ×3 (01:37→13:41)
[2023-07-31] MEDS: Ketorolac 30 MG/ML SDV IVPUSH SCH (02:59)
[2023-07-31] MEDS: oxyCODONE 5 MG Tab PO PRN ×2 (05:57→12:19)
[2023-07-31 06:33] LABS: BASOPHILS ABSOLUTE AUTO 0.03 K/uL (0.00-0.20); BASOPHILS PERCENT AUTO 0.4 % (0.0-1.0); EOSINOPHILS ABSOLUTE AUTO 0.02 K/uL (0.00-0.45); EOSINOPHILS PERCENT AUTO 0.3 % (0.0-6.0); HEMATOCRIT 40.7 % (42.0-52.0); HEMOGLOBIN 14.1 g/dL (14.0-18.0); IMMATURE GRAN ABSOLUTE AUTO 0.03 K/uL (0.00-0.05); IMMATURE GRAN PERCENT AUTO 0.4 % (0.0-0.4); LYMPHOCYTES ABSOLUTE AUTO 1.48 K/uL (1.00-4.80); LYMPHOCYTES PERCENT AUTO 22.1 % (24.0-44.0); MEAN CORPUSCULAR HEMOGLOBIN 28.4 pg (28.0-32.0); MEAN CORPUSCULAR HGB CONC 34.6 g/dL (32.0-36.0); MEAN CORPUSCULAR VOLUME 81.9 fL (83.0-99.0); MEAN PLATELET VOLUME 9.3 fL (9.4-12.4); NEUTROPHILS ABSOLUTE AUTO 4.5 K/uL (1.8-7.7); NEUTROPHILS PERCENT AUTO 67.8 % (41.0-71.0); PLATELET COUNT,PLT 383 K/uL (150-400); RED BLOOD CELL COUNT 4.97 M/uL (4.52-5.90); WHITE BLOOD CELL COUNT,WBC 6.69 K/uL (3.9-11.3)
[2023-07-31 07:21] LABS: A/G RATIO 0.5 (0.9-1.6); ALBUMIN 3.3 g/dL (3.4-5.0); BILIRUBIN TOTAL 0.5 mg/dL (0.2-1.0); CALCIUM 9.5 mg/dL (8.5-10.1); CARBON DIOXIDE,CO2 24.3 mmol/L (21.0-32.0); CREATININE 0.8 mg/dL (0.8-1.3); EST CRCL DRUG DOSING (CG) 117.34 mL/min; POTASSIUM,K 3.5 mmol/L (3.5-5.1); PROTEIN TOTAL,TP 10.1 g/dL (6.4-8.2)
[2023-07-31] MEDS: Metoprolol Tartrate 50 MG Tab PO SCH (08:58)
[2023-07-31] MEDS: Nicotine 21 MG/24 Hr Patch TRDERM SCH (08:59)
[2023-07-31] MEDS: Cefepime 2 GM in Sodium Chloride 0.9% 50 ML IV SCH (08:59)
[2023-07-31] MEDS ORDERED: amLODIPine 5 MG Tab PO SCH (09:00)
[2023-07-31 16:45] VITALS: BP 117/102; PULSE 107
== END 2023-07-31 16:45 | disposition home or self-care (01) | DRG 383 ==
LOC: MW.ED 10:45 → MW.MS 17:40
PROVIDERS: ADMIT Family Medicine; ATTEND Family Medicine
PROC: 05HY33Z Insertion of Infusion Device into Upper Vein, Percutaneous Approach (ICD-10-PCS; principal; 2023-07-29)
DX: L03.115 Cellulitis of right lower limb (principal); I11.0 Hypertensive heart disease with heart failure; I50.9 Heart failure, unspecified; F19.10 Other psychoactive substance abuse, uncomplicated; F41.9 Anxiety disorder, unspecified; F17.210 Nicotine dependence, cigarettes, uncomplicated; L97.819 Non-pressure chronic ulcer of other part of right lower leg with unspecified severity; F10.10 Alcohol abuse, uncomplicated; Z87.898 Personal history of other specified conditions; Z79.899 Other long term (current) drug therapy; Z86.19 Personal history of other infectious and parasitic diseases; Z89.9 Acquired absence of limb, unspecified; Z91.199 Patient's noncompliance with other medical treatment and regimen due to unspecified reason
CPT/HCPCS: 36415; 73720-26-RT; 73720-RT; 80053; 80202; 83605; 85025; 85652; 86140; 87040; 93931-26-RT; 93931-RT; 93971-26-RT; 93971-RT; 96361; 96365; 96375; 99222; 99232; 99239; 99284; 99284-25; A9270-GY; A9577; C9113; J0692; J1650; J1885; J2270; J2405; J3370; J3490; J7030; J7050

== ENCOUNTER 2024-02-18 17:05 | Emergency (ER) | payer BC ==
[2024-02-18 18:07] VITALS: BP 160/99; PULSE 96
== END 2024-02-18 18:07 | disposition home or self-care (01) ==
LOC: MW.ED 17:05
DX: I10 Essential (primary) hypertension
CPT/HCPCS: 99281; 99283

== ENCOUNTER 2024-02-23 18:13 | Emergency (ER) | payer SELFPAY ==
[2024-02-23 18:38] VITALS: PULSE 73
[2024-02-23 19:23] VITALS: BP 205/93
[2024-02-23] MEDS: cloNIDine 0.1 MG Tab PO ONE ×2 (19:23)
== END 2024-02-23 20:15 | disposition home or self-care (01) ==
LOC: MW.ED 18:13
DX: I10 Essential (primary) hypertension (principal); Z79.899 Other long term (current) drug therapy; Z75.8 Other problems related to medical facilities and other health care
CPT/HCPCS: 99283; A9270

== ENCOUNTER 2024-10-15 10:54 | Observation (INO) | payer SELFPAY ==
[2024-10-15] MEDS ORDERED: Sodium Chloride 0.9% 10 ML Syringe FLUSH PRN (11:03)
[2024-10-15] MEDS ORDERED: Sodium Chloride 0.9% 2.5 ML Syringe FLUSH PRN (11:03)
[2024-10-15] MEDS: amLODIPine 5 MG Tab PO ONE (11:45)
[2024-10-15] MEDS: Ondansetron 4 MG Tab.DIS PO ONE (11:45)
[2024-10-15 12:17] LABS: BASOPHILS ABSOLUTE AUTO 0.04 K/uL (0.00-0.20); BASOPHILS PERCENT AUTO 0.3 % (0.0-1.0); EOSINOPHILS ABSOLUTE AUTO 0.09 K/uL (0.00-0.45); EOSINOPHILS PERCENT AUTO 0.8 % (0.0-6.0); HEMATOCRIT 45.1 % (42.0-52.0); HEMOGLOBIN 16.4 g/dL (14.0-18.0); IMMATURE GRAN ABSOLUTE AUTO 0.03 K/uL (0.00-0.05); IMMATURE GRAN PERCENT AUTO 0.3 % (0.0-0.4); MEAN CORPUSCULAR HEMOGLOBIN 32.9 pg (28.0-32.0); MEAN CORPUSCULAR HGB CONC 36.4 g/dL (32.0-36.0); MEAN CORPUSCULAR VOLUME 90.4 fL (83.0-99.0); MEAN PLATELET VOLUME 9.7 fL (9.4-12.4); MONOCYTES ABSOLUTE AUTO 0.69 K/uL (0.00-0.80); MONOCYTES PERCENT AUTO 5.8 % (0.0-8.0); NEUTROPHILS ABSOLUTE AUTO 8.74 K/uL (1.80-7.70); NEUTROPHILS PERCENT AUTO 72.8 % (41.0-71.0); PLATELET COUNT,PLT 216 K/uL (150-400); RED BLOOD CELL COUNT 4.99 M/uL (4.52-5.90); WHITE BLOOD CELL COUNT,WBC 11.99 K/uL (3.9-11.3)
[2024-10-15 12:42] LABS: A/G RATIO 0.7 (0.9-1.6); ALBUMIN 3.8 g/dL (3.4-5.0); BILIRUBIN TOTAL 0.9 mg/dL (0.2-1.0); CALCIUM 9.1 mg/dL (8.5-10.1); CARBON DIOXIDE,CO2 30.8 mmol/L (21.0-32.0); CREATININE 1.4 mg/dL (0.8-1.3); EST CRCL DRUG DOSING (CG) 64.45 mL/min; POTASSIUM,K 3.1 mmol/L (3.5-5.1)
[2024-10-15] MEDS: Iopamidol 755 MG/ML 500 ML Multipack Bottle IVPUSH STA (13:47)
[2024-10-15] MEDS: amLODIPine 5 MG Tab ONE (15:28)
[2024-10-15] MEDS: hydrALAZINE 20 MG/ML SDV IVPUSH ONE (15:30)
[2024-10-15] MEDS ORDERED: Melatonin 3 MG Tab PO PRN (16:07)
[2024-10-15] MEDS ORDERED: Polyethylene Glycol 3350 Powder 17 GM Packet PO PRN (16:07)
[2024-10-15] MEDS ORDERED: Ondansetron 4 MG/2 ML SDV IVPUSH PRN (16:07)
[2024-10-15] MEDS ORDERED: Acetaminophen 325 MG Tab PO PRN (16:07)
[2024-10-15] MEDS ORDERED: Acetaminophen 650 MG Supp RECTAL PRN (16:07)
[2024-10-15] MEDS: Potassium Chloride 20 MEQ Tab.ER PO ONE (16:43)
[2024-10-15] MEDS: cloNIDine 0.1 MG Tab PO SCH (20:59)
[2024-10-16 06:07] LABS: HEMATOCRIT 42.2 % (42.0-52.0); HEMOGLOBIN 15.1 g/dL (14.0-18.0); MEAN CORPUSCULAR HEMOGLOBIN 33.1 pg (28.0-32.0); MEAN CORPUSCULAR HGB CONC 35.8 g/dL (32.0-36.0); MEAN CORPUSCULAR VOLUME 92.5 fL (83.0-99.0); MEAN PLATELET VOLUME 10.4 fL (9.4-12.4); PLATELET COUNT,PLT 186 K/uL (150-400); RED BLOOD CELL COUNT 4.56 M/uL (4.52-5.90)
[2024-10-16 06:32] LABS: CREATININE 1.6 mg/dL (0.8-1.3); EST CRCL DRUG DOSING (CG) 55.63 mL/min; MAGNESIUM 2.2 mg/dL (1.8-2.4); POTASSIUM,K 3.3 mmol/L (3.5-5.1)
[2024-10-16] MEDS: Lisinopril 10 MG Tab PO SCH (08:44)
[2024-10-16] MEDS: Potassium Chloride 20 MEQ Tab.ER PO ONE (10:29)
[2024-10-16 12:17] VITALS: BP 155/99; PULSE 86
== END 2024-10-16 11:55 | disposition home or self-care (01) ==
LOC: MW.ED 10:54 → MW.MS 15:26
PROVIDERS: ADMIT Family Medicine; ATTEND Family Medicine
DX: N17.9 Acute kidney failure, unspecified (principal); I10 Essential (primary) hypertension; F41.9 Anxiety disorder, unspecified; Z79.899 Other long term (current) drug therapy
CPT/HCPCS: 36415; 70450; 70496; 70498; 80048; 80053; 83735; 85025; 85027; 96374; 99285; A9270; G0378; J0360; Q9967